=== PATIENT | female | born 1960 | race Caucasian/White ===

== ENCOUNTER → 2017-01-22 | Outpatient (CLI) | payer BC ==
[~2017-01-22] MED LIST: ADJUSTABLE COMM1 MIS; FERR325T18 PO; HYDR-3580 PO; TRAM50TA PO; WALKER WHEELS/F1 MIS; XARE10TA PO
== END ==
LOC: CPRE 11:30
PROVIDERS: ATTEND Orthopaedic Surgery Orthopaedic Surgery of the Spine
DX: M16.12 Unilateral primary osteoarthritis, left hip (principal)

== ENCOUNTER 2017-01-28 06:12 | Inpatient (IN) | payer BC ==
[~2017-01-28] VITALS: Ht 167.6 cm; Wt 53.4 kg
[~2017-01-28 06:12] MED LIST changes: -ADJUSTABLE COMM1 MIS; -HYDR-3580 PO; -TRAM50TA PO; -WALKER WHEELS/F1 MIS; -XARE10TA PO
[2017-01-28] MEDS ORDERED: GENTAMICIN SULFATE 80 MG/2 ML VIAL ONE (06:18)
[2017-01-28] MEDS ORDERED: SODIUM CHLORID 0.9% 500 ML IV PRN (06:45)
[2017-01-28] MEDS ORDERED: POVIDONE IODINE 5% (ANTISEPSIS KIT) 4 APPLICATIONS EACH NARE PRN (06:45)
[2017-01-28] MEDS ORDERED: METOPROLOL TARTRATE 25 MG TAB PO PRN (06:45)
[2017-01-28] MEDS ORDERED: CHLORHEXIDINE GLUCONATE 2 % 1 PACK (2 CLOTHS) TOPICAL PRN (06:45)
[2017-01-28] MEDS ORDERED: LACTATED RINGER'S 1000 ML IV PRN (06:45)
[2017-01-28] MEDS ORDERED: POVIDONE IODINE 7.5% SCRUB 118 ML BOTTLE TOPICAL SCH (06:45)
[2017-01-28] MEDS ORDERED: TRAM50TA PO (06:56)
[2017-01-28] MEDS ORDERED: ACETAMINOPHEN 1000 MG/100 ML 100 ML IV ONE (07:03)
[2017-01-28] MEDS ORDERED: FAMOTIDINE 20 MG/2 ML VIAL ONE (07:03)
[2017-01-28] MEDS ORDERED: TRANEXAMIC ACID IV SCH (08:30)
[2017-01-28] MEDS ORDERED: ceFAZolin 2 GM PREMIX 50 ML IV SCH (08:30)
[2017-01-28] MEDS ORDERED: VANCOMYCIN 1000 MG/NS 250 ML (for <70 kg) IV SCH ×2 (08:30)
[2017-01-28] MEDS ORDERED: EXPAREL PERI-ARTICULAR INJECTION (TOTAL VOL. 60 ML) P-ARTICULR SCH ×2 (08:30)
[2017-01-28] MEDS ORDERED: SODIUM CHLORIDE 0.9% IV SCH (08:30)
[2017-01-28] MEDS: LACTATED RINGER'S 1000 ML INJ 1,000 ML IV SCH ×2 (09:36→22:04)
--- NOTE | 2017-01-28 09:41 | PD.OP ---
cc: Norberto Acuña MD Operative Report Date of Surgery: Jan 28, 2017 Preoperative Diagnosis: Avascular necrosis left hip Postoperative Diagnosis: Same Procedure: Left total hip replacement arthroplasty Anesthesia: Gen. Surgeon: Norberto Acuña Chiller Hand(s): DAXA Benjamin Operation and Findings: EBL: 400 cc INDICATION: This patient presents with significant hip pain related to findings consistent with avascular necrosis with severe degenerative changes of both hips.. Despite extensive conservative care this patient continues to be painful and now presents for surgical treatment. NOTE: Tri Benjamin PA-C was present for the entire surgical procedure as my assistant dean. In my medical opinion her skill and care was necessary for the proper management of this patient. COMPONENTS: COMPANY: [employer] CUP: [place], 52, 100 series, gription surface LINER: Altrx OD to, neutral STEM: Corail, standard offset, size 8, hydroxyapatite-coated HEAD: Ceramic, 32, +9, 12/14 taper PROCEDURE: This patient was brought to the operating room and anesthetized in the supine position and positioned on the fracture table with both legs held extended. The [] hip and leg was scrubbed with alcohol followed by Hibiclens followed by ChloraPrep and draped sterilely. Antibiotics were given within routine time window and a timeout was done. A 4 inch incision was made starting 2 cm distal and 2 cm lateral to the anterior superior iliac spine. The fascia jimi was opened longitudinally. The interval between the fascia jimi and the rectus was opened down to the capsule of the hip joint. Retractors were positioned allowing good visualization of the capsule. This was opened longitudinally and flaps were created. Stay sutures were utilized. Exposure was excellent. The neck was cut at the proper location using fluoroscopy as a guide. The head was removed. Deep retractors were positioned allowing good visualization of the acetabulum. Acetabulum was deepened down to the floor starting with a proper size reamer and reaming up to 51 mm. A trial was utilized. Fluoroscopy was used to check position and confirmed satisfactory alignment. The rim was reamed with a 52 mm reamer and the final cup was positioned in approximately 20 of anteversion and 40-45 of abduction. Position was satisfactory. A single hole eliminator was positioned followed by the final liner. The lifting hook was utilized. The leg was dropped to the floor, maximally externally rotated and brought across the midline. Retractors were positioned. A box osteotome was utilized followed by progressive broaching to the proper stem size. Trial reduction showed excellent alignment and fit. With 60 of external rotation the leg was dropped to the floor without evidence of anterior subluxation. The wound was irrigated. The final stem was inserted and was found to be very stable. The final reduction using the final head. Stability was as previously noted. Intraoperative x-rays were taken. The wound was irrigated copiously. Hemostasis was controlled. Local anesthesia was utilized. The capsule was repaired with #2 Tycron sutures. The fascia jimi was repaired with running 0 PDS on a loop. Subcutaneous tissue was approximated with 2-0 Vicryl and skin with running intradermal 3-0 Vicryl followed by Steri-Strips. A sterile dressing was applied. The patient was awakened and taken to the recovery room in satisfactory condition. FINDINGS: There were severe degenerative changes of the femoral head either consistent with an aggressive inflammatory erosive arthropathy versus degenerative changes and avascular necrosis. The patient had very atypical looking bone which to me reminded me of fluorosis. At any rate there was a brittleness to the bone. There was a small crack in the calcar which necessitated placement of a Synthes 1.7 mm titanium cable. We used a calcar stem. The final solution was excellent. No complication was otherwise appreciated. Norberto Acuña MD Jan 28, 2017 09:41
[2017-01-28] MEDS ORDERED: MISCELLANEOUS PHARMACY INFORMATION XX ONE (09:45)
[2017-01-28] MEDS ORDERED: Post-op Orders (for Pharmacy) MISC XX ONE (09:45)
[2017-01-28] MEDS ORDERED: MORPHINE SULFATE 8 MG/ML INJ IM PRN (09:45)
[2017-01-28] MEDS ORDERED: ACETAMINOPHEN/HYDROcodone 325 MG/7.5 MG TAB PO PRN (09:45)
[2017-01-28] MEDS ORDERED: SODIUM CHLORIDE 0.9% FLUSH 5 ML FLUSH IVF PRN (09:45)
[2017-01-28] MEDS ORDERED: NALOXONE HCL 0.4 MG/ML AMP IV PUSH PRN (09:45)
[2017-01-28] MEDS ORDERED: MISCELLANEOUS NURSING INFORMATION XX PRN (09:45)
[2017-01-28] MEDS ORDERED: XARE10TA PO (09:46)
[2017-01-28] MEDS ORDERED: HYDR-3580 PO (09:46)
[2017-01-28] MEDS ORDERED: DO NOT ADM ANY ANTICOAGULANT DRUGS PRN (10:07)
[2017-01-28] MEDS ORDERED: *morphine SULFATE 8 MG/ML PERIprocedure ONLY ONE ×2 (10:19→10:47)
[2017-01-28] MEDS ORDERED: GLYCOPYRROLATE 1 MG/5 ML SYRINGE IV PUSH ONE (12:00)
[2017-01-28] MEDS ORDERED: LIDOCAINE HCL 1% PF 5 ML SYRINGE OTHER ONE (12:00)
[2017-01-28] MEDS ORDERED: ESMOLOL HCL 100 MG/10 ML VIAL IV ONE (12:00)
[2017-01-28] MEDS ORDERED: DEXAMETHASONE SOD PHOS 4 MG/ML VIAL IV ONE (12:00)
[2017-01-28] MEDS ORDERED: ROCURONIUM INJ 50 MG/5 ML SYRINGE IV PUSH ONE (12:00)
[2017-01-28] MEDS ORDERED: MORPHINE SULFATE 4 MG/ML INJ IV ONE (12:00)
[2017-01-28] MEDS ORDERED: NEOSTIGMINE 3 MG/3 ML SYR IV ONE (12:00)
[2017-01-28] MEDS ORDERED: ePHEDrine/NS 25 MG/5 ML SYR IV ONE (12:00)
[2017-01-28] MEDS ORDERED: PHENYLEPH/NS 1000 MCG/10 ML SYR IV ONE (12:00)
[2017-01-28] MEDS ORDERED: MIDAZOLAM HCL 2 MG/2 ML VIAL IV ONE (12:00)
[2017-01-28] MEDS ORDERED: PROPOFOL 200 MG/20 ML AMP IV ONE (12:00)
[2017-01-28] MEDS ORDERED: ONDANSETRON HCL 4 MG/2 ML VIAL IV PUSH ONE (12:00)
--- NOTE | 2017-01-28 13:12 | RADRPT ---
EXAM DATE/TIME: 01/28/2017 07:51 [place] COMPARISON: No previous studies available for comparison. INDICATIONS : Placement of total left hip. MEDICAL HISTORY : None. SURGICAL HISTORY : None. ENCOUNTER: Initial ACUITY: 1 day PAIN SCORE: Non-responsive. LOCATION: Left Hip FINDINGS: The patient is status post left total hip arthroplasty with prosthesis in good position. There is no fracture or dislocation. CONCLUSION: Status post left total hip arthroplasty with prosthesis in good position. Dionicio Drummond MD on January 28, 2017 at 13:09 Board Certified Radiologist. This report was verified electronically.
[2017-01-28] MEDS: MORPHINE SULFATE 30 MG/30 ML PCA IV SCH ×2 (13:35→22:00)
[2017-01-28] MEDS: PCA - TOTAL MG MORPHINE DELIVERED PER SHIFT SCH ×2 (14:00→22:00)
[2017-01-28 14:30] VITALS: BP 111/67; PULSE 93; RESP 18; TEMP 97.4; O2SAT 100
[2017-01-28 20:59] VITALS: BP 102/57; PULSE 85; RESP 17; TEMP 96.7; O2SAT 99
[2017-01-28] MEDS: SENNOSIDES 8.6 MG TAB PO SCH (21:58)
[2017-01-28] MEDS: SODIUM CHLORIDE 0.9% FLUSH 5 ML FLUSH IVF SCH (21:58)
[2017-01-28] MEDS: MAGNESIUM HYDROXIDE SUSP 30 ML CUP PO SCH (21:58)
[2017-01-29] VITALS (10 sets, daily range): BP systolic 93–123; BP diastolic 50–68; PULSE 89–111; RESP 17–19; TEMP 97.9–99.7; O2SAT 95–100
[2017-01-29] MEDS: PCA - TOTAL MG MORPHINE DELIVERED PER SHIFT SCH (06:00)
[2017-01-29 06:30] LABS: HEMATOCRIT 22.2 % (35.0-46.0); REVIEW FLAG FINAL
[2017-01-29] MEDS: MAGNESIUM HYDROXIDE SUSP 30 ML CUP PO SCH ×2 (07:34→20:17)
[2017-01-29] MEDS: RIVAROXABAN 10 MG TAB PO SCH (07:35)
[2017-01-29] MEDS ORDERED: WALKER WHEELS/F1 MIS (07:55)
[2017-01-29] MEDS ORDERED: ADJUSTABLE COMM1 MIS (07:56)
--- NOTE | 2017-01-29 07:57 | HHI.FF ---
Face to Face Verification Diagnosis: (1) Osteoarthritis of left hip (2) Avascular necrosis of bone of left hip Physical Therapy Gait training, Safety evaluation, Transfer training, bed to chair Hip: Total hip, Protocol: Left Additional Instructions PT 4 days/wk for 2 weeks. TTWBing Left LE, anterior KIMBERLEE precautions. Walker for gait assistance. Nursing RN Days per Week: 3 x Week(s): 1 Dressing Changes: Do not change dressing Additional Instructions Vitals assessment, dressing assessment - do not change unless saturated. I have seen patient Kellie Madden on 01/29/17. My clinical findings support the need for the requested home health care services because: Limited ability to care for self High risk of falls I certify that my clinical findings support that this patient is homebound because: Post-op weakness Unsteady gait/balance Cristela Morales Jan 29, 2017 07:57
--- NOTE | 2017-01-29 07:58 | HHI.DCPOC ---
Discharge Care Plan Diagnosis: (1) Osteoarthritis of left hip (2) Avascular necrosis of bone of left hip Your Health Problems Are: Difficulty with ADL Incision/Drains Inflammation Goals to Promote Your Health * To prevent worsening of your condition and complications * To maintain your health at the optimal level Directions to Meet Your Goals Take your medications as prescribed Follow your dietary instruction Follow activity as directed Keep your appointments as scheduled Take your immunizations and boosters as scheduled If your symptoms worsen call your PCP, if no PCP go to Urgent Care Center or Emergency Room Smoking is Dangerous to Your Health. Avoid second hand smoke Call the 24-hour hour crisis hotline for domestic abuse at Cristela Moarles Jan 29, 2017 07:58
--- NOTE | 2017-01-29 07:59 | HHI.DS ---
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 transfused 1 unit.... dc home a [facility] #2. TTWBing LLE. Pt Condition on Discharge: Stable Discharge Disposition: Discharge Home Discharge Instructions Diet Instructions: As Tolerated, No Restrictions, High Fiber Diet Activities You Can Perform: Partial Weight Bearing Additional Activity Instruc.: TTWBing LLE. Anterior sander precautions New Medications: Adjustable Commode 3-in-1 (Adjustable Commode 3-in-1) 1 Mis Mis EA .ROUTE DIRECTED, #1 Walker with Front Wheels (Walker with Front Wheels) 1 Mis Mis EA .ROUTE DIRECTED, #1 0 Refills Hydrocodone/Acetaminophen (Hydrocodone-Acetamin 7.5-325) 7.5 Mg-325 Mg Tablet 1 TAB PO Q4H PRN for PAIN, #40 TAB Rivaroxaban (Xarelto) 10 Mg Tab 10 MG PO Q24H for Prevent Blood Clot, #25 TAB Continued Medications: Ferrous Sulfate (Ferrous Sulfate) 325 Mg (65 Mg Iron) Tablet 325 MG PO DAILY for Nutritional Supplement, #30 TAB 0 Refills Tramadol (Tramadol) 50 Mg Tab 50 MG PO Q4HR PRN for PAIN, TAB 0 Refills Cristela Morales Jan 29, 2017 07:59
--- NOTE | 2017-01-29 08:03 | PD.ORT.PN ---
Subjective Subjective Remarks Doing well. Pain moderately controlled. She is trying to learn to use the walker and limit weight on the left as instructed. No complaints otherwise. No new CP or SOB. Questions about discharge. She is staying local but is from [facility]. Objective Vitals Vital Signs Date Time Temp Pulse Resp B/P (MAP) Pulse Ox O2 Delivery O2 Flow Rate FiO2 01/29/17 07:44 99.4 89 17 111/54 (73) 100 01/29/17 06:00 17 01/29/17 04:17 98.9 92 17 93/54 (67) 98 01/29/17 00:20 98.5 89 18 95/50 (65) 95 01/29/17 00:18 Room Air 01/28/17 22:04 19 01/28/17 22:00 19 01/28/17 22:00 18 01/28/17 20:59 96.7 85 17 102/57 (72) 99 01/28/17 14:30 97.4 93 18 111/67 (82) 100 01/28/17 14:00 67 18 96/58 (71) 98 Room Air 01/28/17 14:00 18 01/28/17 13:35 15 01/28/17 13:00 65 15 98/53 (68) 96 Room Air 01/28/17 12:00 97.5 61 19 101/57 (72) 98 Room Air 01/28/17 11:30 66 14 97/55 (69) 94 Room Air 01/28/17 11:00 61 22 105/51 (69) 95 Room Air 01/28/17 10:45 66 19 98/55 (69) 100 Room Air 01/28/17 10:30 70 21 100/58 (72) 99 Room Air 01/28/17 10:15 93 18 108/65 (79) 100 Room Air 01/28/17 10:08 97.3 115 25 105/56 (72) 100 Room Air I/O 01/28/17 01/28/17 01/28/17 01/29/17 01/29/17 01/29/17 07:00 15:00 23:00 07:00 15:00 23:00 Intake Total 2313 ml 747 ml 580 ml Output Total 775 ml 275 ml 1100 ml Balance 1538 ml 472 ml -520 ml Intake Oral 480 ml 480 ml IV Total 2313 ml 267 ml 100 ml Output Urine Total 325 ml 275 ml 1100 ml Estimated Blood Loss 450 ml # Bowel Movements 0 0 Result Diagram: 01/29/17 0605 Procedures Left total hip arthroplasty, direct anterior approach Objective Remarks Sitting up in bed No acute distress LLE Dressing c/d/i, minimal drainage, mild swelling, no erythema +motor at, +sens, +nvi Neg homans distal Assessment & Plan Ortho Post Op Day #: 1 Problem List: (1) Osteoarthritis of left hip ICD Codes: M16.12 - Unilateral primary osteoarthritis, left hip Qualifiers: Qualified Codes: M16.12 - Unilateral primary osteoarthritis, left hip (2) Avascular necrosis of bone of left hip ICD Codes: 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 Ortho stable. Pain controlled. D/C METAL STAMPER - change to po pain meds. Hg 7.8. Transfuse w 1 unit autologous blood. Recheck Hg tomorrow am. Hold dressing changes unless saturated. PT - TTWBing LLE. Anterior kimberlee precautions. Xarelto 10mg qd. D/C planning, home w [facility] tomorrow. She is staying with a family member but is from [facility]. F/U in 2 weeks as scheduled. DME and F2F written. Cristela Morales Jan 29, 2017 08:03
[2017-01-29] MEDS: SODIUM CHLORIDE 0.9% FLUSH 5 ML FLUSH IVF SCH ×2 (09:00→20:18)
[2017-01-29] MEDS ORDERED: INFLUENZA VIRUS VACCINE (QUADRIVALENT) 0.5 ML SYR IM ONE (10:00)
[2017-01-29] MEDS: ACETAMINOPHEN/HYDROcodone 325 MG/7.5 MG TAB PO PRN ×2 (15:10→19:12)
[2017-01-29 15:53] LABS: BLOOD, URINE NEG (NEG); GLUCOSE,URINE NEG (NEG); KETONE, URINE NEG (NEG); NITRITE,URINE NEG (NEG); PH, URINE 8.5 (5.0-8.5); RBC, URINE 0-3 /hpf (0-3); SQUAMOUS EPITHELIAL CELL URINE 0-1 /hpf (0-5); URINE COLOR LIGHT-YELLOW (YELLW/STRAW); WBC, URINE 0-2 /hpf (0-5)
[2017-01-29 15:54] LABS: BACTERIA, URINE OCC /hpf; COMMENT (UR) CULT NOT INDICATED; CULTURE IF INDICATED CULT NOT INDICATED
[2017-01-29] MEDS: SENNOSIDES 8.6 MG TAB PO SCH (20:18)
[2017-01-29] MEDS: LACTATED RINGER'S 1000 ML INJ 1,000 ML IV SCH (20:22)
[2017-01-29] MEDS ORDERED: BISACODYL 10 MG SUPP RECTAL PRN (23:45)
[2017-01-30] VITALS: BP 123/66; PULSE 101; RESP 17; TEMP 99.1; O2SAT 99
[2017-01-30] MEDS: ACETAMINOPHEN/HYDROcodone 325 MG/7.5 MG TAB PO PRN ×2 (06:11→10:45)
--- NOTE | 2017-01-30 07:07 | PD.ORT.PN ---
Subjective Subjective Remarks Resting comfortably many questions Objective Vitals Vital Signs Date Time Temp Pulse Resp B/P (MAP) Pulse Ox O2 Delivery O2 Flow Rate FiO2 01/30/17 00:00 99.1 101 17 123/66 (85) 99 01/29/17 21:41 100 21 01/29/17 20:00 99.6 111 19 115/68 (84) 100 01/29/17 15:55 98.3 109 17 118/58 (78) 99 01/29/17 15:30 98.3 109 17 118/58 99 01/29/17 12:09 97.9 105 17 123/58 01/29/17 11:49 99.7 100 17 116/59 01/29/17 10:30 100 01/29/17 07:44 99.4 89 17 111/54 (73) 100 I/O 01/29/17 01/29/17 01/29/17 01/30/17 01/30/17 01/30/17 07:00 15:00 23:00 07:00 15:00 23:00 Intake Total 580 ml 700 ml 330 ml 1080 ml Output Total 1100 ml Balance -520 ml 700 ml 330 ml 1080 ml Intake Oral 480 ml 700 ml 1080 ml IV Total 100 ml Packed Cells 320 ml Blood Product IV Normal Saline Flush 10 ml Output Urine Total 1100 ml # Voids 5 5 # Bowel Movements 0 0 1 Result Diagram: 01/29/17 0605 Procedures Left total hip arthroplasty, direct anterior approach Objective Remarks Sitting up in bed No acute distress LLE Dressing c/d/i, minimal drainage, mild swelling, no erythema +motor at, +sens, +nvi Neg homans distal Assessment & Plan Problem List: (1) Osteoarthritis of left hip ICD Codes: M16.12 - Unilateral primary osteoarthritis, left hip Qualifiers: Qualified Codes: M16.12 - Unilateral primary osteoarthritis, left hip (2) Avascular necrosis of bone of left hip ICD Codes: 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 Ortho stable. Pain controlled. po pain meds. Hg 7.8. Yesterday. Transfused w 1 unit autologous blood. Recheck Hg today. If stable discharge may proceed Hold dressing changes unless saturated. PT - TTWBing LLE. Anterior kimberlee precautions. Xarelto 10mg qd. D/C planning, home w [facility] today. She is staying with a family member but is from [facility]. F/U in 2 weeks as scheduled. DME and F2F written. Forrest Lizama Jr. Jan 30, 2017 07:07
[2017-01-30 07:41] LABS: REVIEW FLAG FINAL
[2017-01-30 08:15] VITALS: BP 124/80; PULSE 104; RESP 16; TEMP 97.8; O2SAT 100
[2017-01-30] MEDS: RIVAROXABAN 10 MG TAB PO SCH (08:59)
[2017-01-30] MEDS: MAGNESIUM HYDROXIDE SUSP 30 ML CUP PO SCH (09:00)
[2017-01-30] MEDS: SODIUM CHLORIDE 0.9% FLUSH 5 ML FLUSH IVF SCH (09:00)
== END 2017-01-30 11:42 | disposition home health service (06) | DRG 470 ==
LOC: HSDI 06:12 → EDUNIT# 09:00 → N06B 14:25
PROVIDERS: ADMIT Orthopaedic Surgery Orthopaedic Surgery of the Spine; ATTEND Orthopaedic Surgery Orthopaedic Surgery of the Spine
PROC: 0SRB04A Replacement of Left Hip Joint with Ceramic on Polyethylene Synthetic Substitute, Uncemented, Open Approach (ICD-10-PCS; principal; 2017-01-28 07:22)
PROC: 30233N1 Transfusion of Nonautologous Red Blood Cells into Peripheral Vein, Percutaneous Approach (ICD-10-PCS; 2017-01-29)
DX: M16.12 Unilateral primary osteoarthritis, left hip (principal); M87.052 Idiopathic aseptic necrosis of left femur
CPT/HCPCS: 36430; 73502; 76000; 81001; 85014; 85018; 86850; 86890; 86900; 86901; 86920; 88305; 88311; 94150; C1713; C1776; C9290; J0131; J0690; J1100; J1580; J2250; J2270; J2370; J2405; J2710; J3010; J3370; J7050; J7120; P9016

== ENCOUNTER 2018-02-08 07:30 | Inpatient (IN) ==
[2018-02-15] MEDS ORDERED: Chlorhexidine Gluconate 2% 1 Pack (2 Cloths) TOPICAL ONE (06:02)
[2018-02-15] MEDS ORDERED: Metoprolol Tartrate 25 MG Tablet PO ONE (06:02)
[2018-02-15] MEDS ORDERED: Sodium Chlor 0.9% Inj 60 ML, Bupivacaine Liposo PF 1.3% Inj 20 ML P-ARTICULR SCH ×2 (06:05)
[2018-02-15] MEDS ORDERED: Chlorhexidine 4% Topical 120 APPLIC/120 ML Bottle TOPICAL SCH (06:15)
[2018-02-15] MEDS ORDERED: TRANEXAMIC ACID IV.SIG SCH (07:00)
[2018-02-15] MEDS ORDERED: SODIUM CHLOR 0.9% IV.SIG SCH (07:00)
[2018-02-15] MEDS ORDERED: ceFAZolin 2 GM Premix Inj 2 GM/50 ML PIGGYBACK IV.SIG SCH (07:00)
[2018-02-15] MEDS ORDERED: Vancomycin Inj 1,000 MG in Sodium Chlor 0.9% Inj 250 ML IV.SIG SCH (07:00)
[2018-02-15] MEDS ORDERED: Sodium Chlor 0.9% Inj 500 ML IV.SIG SCH (07:00)
--- NOTE | 2018-02-15 08:18 | ECG ---
Date Performed: 02/15/2018 Time Performed: 06:25:08 PTAGE: 57 years EKG: Sinus rhythm rSr'(V1) - probable normal variant Normal ECG NO PREVIOUS TRACING DOCTOR: Dimas Howell Interpretating Date/Time 02/15/2018 08:16:54
--- NOTE | 2018-02-15 10:07 | XR ---
EXAM DATE: 02/15/2018 9:48 AM EST AGE/SEX: 57 years / Female INDICATIONS: Right total hip arthroplasty. CLINICAL DATA: This is the patient's initial encounter. Patient reports that signs and symptoms have been present for 1 day and indicates a pain score of Nonresponsive. MEDICAL/SURGICAL HISTORY: Non-responsive. . Left total hip arthroplasty. COMPARISON: No prior exams available for comparison. FINDINGS: 2 spot images obtained in the operating room during a procedure demonstrates right total hip arthropl asty hardware in place. No unexpected findings are identified. CONCLUSION: Images document a right total arthroplasty hardware, as above. Electronically signed by: Amilcar Flores MD 02/15/2018 10:06 AM EST
[2018-02-15] MEDS ORDERED: Morphine Inj 4 MG/ML Vial IV.PUSH PRN (10:08)
[2018-02-15] MEDS ORDERED: Post-op Orders (for Pharmacy) OTHER STA (10:08)
[2018-02-15] MEDS ORDERED: Bisacodyl 10 MG Supp RECTAL PRN (10:08)
--- NOTE | 2018-02-15 10:14 | P.OP ---
- Preoperative Diagnosis (1) Osteoarthritis of right hip - Postoperative Diagnosis (1) Osteoarthritis of right hip Date of procedure: 02/15/18 Procedure: Right total hip arthroplasty, direct anterior exposure Anesthesia: GETA Surgeon: Norberto Acuña MD Cold Roll Operator: Madison Grover PA-C Operation and Findings: EBL: 400 cc INDICATION: This patient is a 57-year-old female with severe bilateral hip disease. She has had a previous left total hip replacement last year and has done very well. She has findings likely consistent with an inflammatory arthropathy. There is some suggestion of avascular necrosis or collapse of the femoral head related to severe osteoarthritis. She is developing acetabular dysplasia. She presents now for elective hip replacement surgery NOTE: Madison Grover PA-C was present for the entire surgical procedure as my vet assistant. In my medical opinion her skill and care was necessary for the proper management of this patient. COMPONENTS: COMPANY: [employer] CUP: [place], 48 mm, 100 series STEM: Corail, size 9, standard offset HEAD: Ceramic, 32 mm, +5, 12/14 taper LINER: Altrex, 32 mm, neutral PROCEDURE: This patient was brought to the operating room and anesthetized in the supine position. The patient was positioned on the [place] table with the operative leg extended and the contralateral leg held in proper position. The hip and leg was scrubbed with alcohol followed by Hibiclens followed by ChloraPrep and draped sterilely in the clean air suite. Preoperative fluoroscopic images were utilized. A templating x-ray was obtained and printed to be used during the case. A timeout was done and antibiotics were given within a routine time window. A 4 inch incision was made starting 2 cm distal and 2 cm lateral to the anterior superior iliac spine. The tensor fascia jimi fascia was identified and opened longitudinally in line with the incision. Deep retraction allowed good visualization in the interval between the tensor fascia jimi and the rectus and this was opened further. The posterior fascia was opened. Crossing vessels were coagulated appropriately. The anterior aspect of the hip capsule was identified. Retractors were placed above and below the capsule. The capsule was opened longitudinally. Stay sutures were utilized creating flaps for the anterior capsule. The femoral neck was cut at the right location and completed with an oscillating saw. The head and neck was removed and taken to the back table. The leg was externally rotated 60 degrees and traction placed on the extremity. The labrum was excised. A portion of the capsule was excised. Visibility was excellent. Retractors were positioned. Starting 6 mm from the final size reamer, we began reaming up to 1 mm from the anticipated size. This was visualized under fluoroscopy. A trial cup was positioned. This also was visualized under fluoroscopy and minor adjustments were made. The final preparation with a 48 reamer was utilized. The final cup was positioned in approximately 40 degrees of abduction and 20 degrees of forward flexion. This is visualized under fluoroscopy and was seated into the final position. Position was very satisfactory. A single hole eliminator was positioned followed by the plastic liner. The final solution was excellent. Traction was let off. The leg was brought into neutral rotation. A lifting took was positioned underneath the greater trochanter and proximal femur. The leg was maximally externally rotated and the foot drop to the floor across midline. Retractors were positioned. A box osteotome was used to gain entrance into the top of the femur. The canal was probed with a finder to ensure that we were within the canal. Successive broaching up to the final stem size was accomplished. Trial reduction showed excellent balancing. Adjustments were made. The wound was irrigated copiously and the canal irrigated. The final stem was inserted in proper orientation. A final trial reduction was performed, and the final head was impacted. The hip was reduced and with 60 degrees of external rotation the leg to be dropped to the floor without evidence of anterior subluxation. Intraoperative x-rays were obtained. Local anesthesia was utilized for a field block including posterior capsule, inferior capsule, cephalad capsule, region of the greater trochanter, tensor fascia jimi and subcutaneous tissue. The anterior capsule was repaired with interrupted #2 Tycron sutures. The fascia was run with 0 PDS on a loop. Subcutaneous tissue was approximated 2-0 Vicryl suture and skin with running intradermal 3-0 Vicryl followed by benzoin and Steri-Strips. A sterile dressing was applied. The patient was awakened and taken to the recovery room in satisfactory condition FINDINGS: There was severe acetabular dysplasia and severe erosive changes involving the acetabulum as well as the femoral head. This had the appearance of aggressive inflammatory arthropathy on top of osteoarthritis. There is no complication that was appreciated.
--- NOTE | 2018-02-15 10:16 | P.DCO ---
- Physical Therapy Physical Therapy: Gait training (3 times per week for 2 weeks) Hip: Total hip, Protocol: Right (Anterior hip precautions) Right Lower Extremity Weight Bearing: Weight bearing as tolerated - Nursing RN: 3 days/week x 2 weeks - Certification Need for Home Health services: I have seen patient Kellie Madden on 02/15/18. My clinical findings support the need for the requested home health care services because: Need for Home Health Services: Limited ability to care for self, High risk of falls Homebound Certification: I certify that my clinical findings support that this patient is homebound because: Homebound Certification: Unsteady gait/balance
[2018-02-15] MEDS ORDERED: fentaNYL Citrate Inj 100 MCG/2 ML Ampul ONE ×2 (10:17)
[2018-02-15] MEDS ORDERED: *morphine SULFATE 8 MG/ML PERIprocedure ONLY ONE ×2 (10:39→11:02)
[2018-02-15] MEDS: ceFAZolin 1 GM Premix Inj 1 GM/50 ML IV.SIG SCH ×2 (13:54→20:52)
[2018-02-15] MEDS: Senna/Docusate Sodium 8.6/50 MG Tablet PO SCH (20:53)
[2018-02-15] MEDS: Multivitamin/Minerals Therapeutic Tablet PO SCH (20:53)
[2018-02-15] MEDS ORDERED: Temazepam 15 MG Capsule PO PRN (21:00)
[2018-02-16] MEDS: ceFAZolin 1 GM Premix Inj 1 GM/50 ML IV.SIG SCH (01:05)
[2018-02-16 06:09] LABS: Hematocrit 22.9 % (35.0-46.0)
[2018-02-16] MEDS: Multivitamin/Minerals Therapeutic Tablet PO SCH (08:31)
[2018-02-16] MEDS: Senna/Docusate Sodium 8.6/50 MG Tablet PO SCH (08:31)
--- NOTE | 2018-02-16 08:35 | P.DS ---
Date of admission: 02/15/18 05:33 Primary care physician: Dr Pablo Cardozo Attending physician on discharge: Norberto Acuña Anticipated date of discharge: 02/16/18 Brief History from admission: Ms. Madden has had bilateral hip for several years. She was treated with prescription antiinflammatories. She underwent an intraarticular hip injection on the left but it was unsuccessful. She declined another injection on the right. She underwent left total hip arthroplasty in 2017 and did well. Surgical treatment was then recommended for her right hip in the form of right total hip arthroplasty. She agreed and now presents for the above. DS: Diagnosis - Discharge Diagnosis (1) Osteoarthritis of right hip Status: Acute DS: Medications - Discharge Medications Prescriptions: aspirin 81 mg PO BID 30 Days #60 tab hydrocodone-acetaminophen 1 tab PO Q4H PRN #42 tab PRN Reason: Acute Pain DS: Summary Hospital Course: Surgical treatment was performed on the day of admission without complication. She recovered well in PACU and was transferred to the orthopaedic floor. Pain was controlled with IV and oral medications. Her Hemoglobin dropped to 8.0 postop day 1 but her vital signs were stable. She was compliant with physical therapy and all total hip precautions. After 1 day she was found to be stable and discharged home with home health care. She was encouraged to continue therapy, to ice the operative limb and to pursue a high fiber diet. She was given a prescription for [place]. - Time Spent with Patient Total time spent providing and/or coordinating discharge services: Greater than 30 minutes - Quality: VTE Deep Vein Thrombosis/Pulmonary Embolism Present on Admission: No Exam Vital signs: Vital Signs 02/15/18 10:15 02/15/18 10:24 02/15/18 10:30 Temperature 97.5 F L Pulse Rate 93 H 104 H 75 Respiratory Rate 20 16 17 Blood Pressure 118/74 122/82 111/66 Pulse Oximetry 100 100 100 02/15/18 10:45 02/15/18 11:00 02/15/18 11:15 Temperature 97.4 F L Pulse Rate 63 62 67 Respiratory Rate 22 24 18 Blood Pressure 115/64 112/62 124/65 Pulse Oximetry 100 100 100 02/15/18 12:00 02/15/18 12:25 02/15/18 16:40 Temperature 97.3 F L 97.7 F Pulse Rate 62 71 83 Respiratory Rate 18 18 16 Blood Pressure 112/65 116/62 104/55 L Pulse Oximetry 100 99 100 02/15/18 19:35 02/16/18 00:05 02/16/18 04:45 Temperature 98.3 F 98.5 F 98.4 F Pulse Rate 79 77 80 Respiratory Rate 17 17 16 Blood Pressure 107/54 L 104/56 L 103/59 L Pulse Oximetry 97 97 98 Intake & Output 02/15/18 02/16/18 02/16/18 18:59 06:59 18:59 Intake Total 2265.5 / 2265.5 1580 / 1580 Output Total 400 / 400 Balance 1865.5 / 1865.5 1580 / 1580 Weight 54.8 kg 54.8 kg Intake: IV 1455.5 / 1455.5 1100 / 1100 LR 1000 mL Inj 1,000 ML @ 80 1000 / 1000 mls/hr IV.CONT .[id number] [facility] Rx# :[id number] LR 1000 mL Inj 1,000 ML @ 30 1000 / 1000 mls/hr IV.SIG .Q24H [facility] Rx#: [id number] Cyklokapron Inj 550 MG In NS 105.5 / 105.5 Inj 100 ML @ 200 mls/hr IV.SIG ONCE [facility] Rx#:[id number] Vancomycin Inj 1,000 MG In NS 250 / 250 Inj 250 ML @ 250 mls/hr IV.SIG [employer] [facility] Rx#:[id number] Ancef 1 GM Premix Inj 1 gm In 50 / 50 100 / 100 50 ml @ 100 mls/hr IV.SIG Q6H [facility] Rx#:[id number] Ancef 2 GM Premix Inj 2 gm In 50 / 50 50 ml @ 100 mls/hr IV.SIG [employer] [facility] Rx#:[id number] Oral 60 / 60 480 / 480 Anesthesia Amount 750 / 750 Output: Estimated Blood Loss 400 / 400 Other: # Voids 2 Date of Last Bowel Movement 02/14/18 # Bowel Movements 0 Weight On Admission 54.8 kg Narrative: Sitting up in bed NAD RLE Hip dressing c/d/i, minimal swelling, no erythema, mild warmth +motor at, +sens, +nvi Neg homans Results Procedures completed during hospitalization: Right total hip arthroplasty, direct anterior approach Labs on day of discharge: Labs from last 24 hours 02/16/18 05:19 Hgb 8.0 L Hct 22.9 L - Impressions ITS Impressions Hip X-Ray 02/15/18 00:00 CONCLUSION: Images document a right total arthroplasty hardware, as above. Discharge Plan - Discharge Disposition Patient Disposition: Disch W/Home Health Service - Discharge Condition Condition: Good - Discharge Order Discharge Orders: Discharge Order (Routine); Ordered 02/16/18 Ordered By: Cristela Morales - Discharge Details Anticipated Discharge Date: 02/16/18 - Physicians Team Attending Provider: Norberto Acuña - Rxs /Orders / Referrals /Forms Prescriptions: New aspirin 81 mg Tablet,Chewable 81 mg PO BID 30 Days Qty: 60 RF: 0 hydrocodone-acetaminophen 7.5-325 mg Tablet 1 tab PO Q4H PRN (Reason: Acute Pain) Qty: 42 RF: 0 Continue diclofenac sodium 75 mg Tablet,Delayed Release (Dr/Ec) 75 mg PO BID mirabegron [Myrbetriq] 25 mg Tablet Extended Release 24 Hr 25 mg PO DAILY tramadol 50 mg Tablet 50 mg PO TID PRN (Reason: Pain) Ambulatory Orders / Order Sets / DME: Adjustable Commode 3-in-1 (1 each) (Routine) Location: Determined by Patient Ordered By: Norberto Acuña Walker With Front Wheels (1 each) (Routine) Location: Determined by Patient Ordered By: Norberto Acuña Referrals: Dr Pablo Cardozo MD [Other] - See Instructions - Post Discharge Care Plan Care Plan Goals: Discharge Care Plan Goals for RIGHT Total Hip Replacement You had a hip replacement surgery. This means your natural hip was replaced with an artificial joint (prosthesis). You may be recovering at home or in a rehabilitation facility. Either way, you must take care of your new hip. Here are some goals to help you heal well. Directions to Meet your Goals: 1. Activity & Exercises: * Take pain medicine as directed by your doctor. * Dont drive until your doctor says its OK. And never drive while taking opioid pain medicine. * Wear the support stockings you were given in the hospital as directed by your surgeon. * Dont sit for more than 30 to 45 minutes at one time. * Dont lean forward while sitting. * Dont cross your legs. * Keep your feet flat on the floor. Dont turn your foot or leg inward. This stresses your hip joint. * Use an elevated toilet seat for 6 weeks after surgery. * Nap if you are tired, but dont stay in bed all day. * Sit on a firm cushion when you ride in a car and avoid sitting too low. Try not to bend your hip too much when getting in and out of the car. 2. Prevent Falls/Injury: * Follow your doctors orders regarding how much weight to put on the affected leg. * Dont bend at the hip when you bend over. Don't bend at the waist to put on socks and shoes. And avoid picking up items from the floor. * Use a cane, crutches, a walker, or handrails until your balance, flexibility, and strength improve. And remember to ask for help from others when you need it. * Free up your hands so that you can use them to keep balance. Use a samir pack , apron, or pockets to carry things. * Arrange your household to keep the items you need handy. Keep everything else out of the way. * Remove items that may cause you to fall, such as throw rugs and electrical cords. * Use nonslip bath mats, grab bars, an elevated toilet seat, and a shower chair in your bathroom * Sit on a shower stool or chair when you shower to keep from falling. 3. Precautions: * Prevent infection. Any infection will need to be treated immediately. Call your doctor right away if you think you might have an infection. * Tell your dentist that you have an artificial joint and take antibiotics as prescribed before any dental work. * Tell all your healthcare providers about your artificial joint before any medical procedure. * Maintain a healthy weight. Get help to lose any extra pounds. Added body weight puts stress on the joints. 4. Incision Care: * Prevent infection by washing your hands often. If an infection occurs, it will need to be treated right away. * Call your doctor right away if you think you may have an infection. Symptoms include a fever or an incision that leaks white, green, or yellow fluid. * Don't soak your incision in water until your doctor says its OK. This means no hot tubs, bathtubs, or swimming pools. * Follow your doctor's instructions for changing the dressing. * Dont rub the incision, or apply creams or lotions to it. * If you notice any redness or drainage around the bandage site, contact your surgeon's office immediately. 5. Follow-Up: Do Not miss your follow-up appointment. Keep up with all your appointments and yearly check ups When to call your doctor: Call your doctor right away if you have: Hip pain gets worse Pain or swelling in your calf or leg not related to your incision Tenderness or redness in your calf Fever of 100.4F (38C) or higher, or as directed by your healthcare provider Shaking chills Swelling or redness at the incision site gets worse Fluid draining from the incision Call 911: Call 911 right away if you have: Chest pain Shortness of breath Any pain or tenderness in your calf
[2018-02-16] MEDS ORDERED: Tolterodine Tartrate LA 2 MG Capsule PO SCH (09:00)
--- NOTE | 2018-02-16 12:49 | P.PNOP ---
Subjective Interval history: She did well overnight. Moderate right hip pain but no radiating leg pain or weakness below the knee. No concerns of CP or SOB. Physical Exam Vital signs: Vital Signs 02/15/18 16:40 02/15/18 19:35 02/16/18 00:05 Temperature 97.7 F 98.3 F 98.5 F Pulse Rate 83 79 77 Respiratory Rate 16 17 17 Blood Pressure 104/55 L 107/54 L 104/56 L Pulse Oximetry 100 97 97 02/16/18 04:45 02/16/18 08:00 02/16/18 12:00 Temperature 98.4 F 98.7 F 98.8 F Pulse Rate 80 83 82 Respiratory Rate 16 12 13 Blood Pressure 103/59 L 113/59 L 110/54 L Pulse Oximetry 98 98 98 Intake & Output 02/15/18 02/16/18 02/16/18 18:59 06:59 18:59 Intake Total 2265.5 / 2265.5 1580 / 1580 Output Total 400 / 400 Balance 1865.5 / 1865.5 1580 / 1580 Weight 54.8 kg 54.8 kg Intake: IV 1455.5 / 1455.5 1100 / 1100 LR 1000 mL Inj 1,000 ML @ 80 1000 / 1000 mls/hr IV.CONT .[id number] [facility] Rx# :[id number] LR 1000 mL Inj 1,000 ML @ 30 1000 / 1000 mls/hr IV.SIG .Q24H [facility] Rx#: [id number] Cyklokapron Inj 550 MG In NS 105.5 / 105.5 Inj 100 ML @ 200 mls/hr IV.SIG ONCE [facility] Rx#:[id number] Vancomycin Inj 1,000 MG In NS 250 / 250 Inj 250 ML @ 250 mls/hr IV.SIG [employer] [facility] Rx#:[id number] Ancef 1 GM Premix Inj 1 gm In 50 / 50 100 / 100 50 ml @ 100 mls/hr IV.SIG Q6H [facility] Rx#:[id number] Ancef 2 GM Premix Inj 2 gm In 50 / 50 50 ml @ 100 mls/hr IV.SIG [employer] [facility] Rx#:[id number] Oral 60 / 60 480 / 480 Anesthesia Amount 750 / 750 Output: Estimated Blood Loss 400 / 400 Other: # Voids 2 Date of Last Bowel Movement 02/14/18 # Bowel Movements 0 Weight On Admission 54.8 kg Narrative: Sitting up in bed NAD RLE Hip dressing c/d/i, minimal swelling, no erythema, mild warmth +motor at, +sens, +nvi Neg homans - Constitutional no acute distress Results - Labs CBC & Chem 7: 02/16/18 05:19 Laboratory Results - last 24 hr 02/16/18 05:19 Hgb 8.0 L Hct 22.9 L - Procedures Right total hip arthroplasty, direct anterior approach Assessment and Plan - Ortho Post Op Day # 1 - Assessment and Plan pod#1 s/p R KIMBERLEE, anterior Doing well. Ortho stable. Pain well controlled. Ok to d/c home after PT today. Hg 8.0. Postop anemia. Consider iron 325mg daily for 2 weeks. No increased cardiac activity for 7-10 days. PO pain meds written. Hold dressing changes unless saturated. PT - WBAT RLE. Anterior KIMBRELEE protocol. F/U in 2 weeks as scheduled. DME written.
== END 2018-02-16 15:33 | disposition home health service (06) ==
LOC: HSDI 02-15 05:33 → N06 02-15 12:10
PROVIDERS: ADMIT Orthopaedic Surgery Orthopaedic Surgery of the Spine; ATTEND Orthopaedic Surgery Orthopaedic Surgery of the Spine